=== PATIENT | male | born 1970 | race Caucasian/White ===

== ENCOUNTER 2022-06-14 06:04 | Inpatient (IN) ==
[2022-06-14] MEDS ORDERED: ceFAZolin 2,000 MG in Water for inj. (sterile) 20 ML IVP ONE (06:24)
[2022-06-14] MEDS ORDERED: *HR* FentaNYL (PF) 100 MCG/2 ML VIAL ONE ×2 (06:39→08:17)
[2022-06-14] MEDS ORDERED: *HR* Propofol 200 MG/20 ML VIAL IVP ONE (06:40)
[2022-06-14] MEDS ORDERED: *HR* Rocuronium Bromide 50 MG/5 ML VIAL ONE ×2 (06:40→08:46)
[2022-06-14] MEDS ORDERED: Ondansetron 4 MG/2 ML VIAL ONE (06:40)
[2022-06-14] MEDS ORDERED: Sugammadex Sodium 200 MG/2 ML VIAL IV ONE (06:40)
[2022-06-14] MEDS ORDERED: Lidocaine -MPF 2% 2 ML VIAL ONE (06:40)
[2022-06-14] MEDS: Ringers Solution, Lactated 1,000 ML IVC SCH ×2 (06:47→11:05)
[2022-06-14] MEDS ORDERED: *HR* Succinylcholine 200 MG/10 ML VIAL IVP ONE (06:54)
[2022-06-14] MEDS ORDERED: Acetaminophen IV 1,000 MG/100 ML BAG IVPB ONE (06:58)
[2022-06-14] MEDS ORDERED: CeFAZolin Syr 2,000MG/20 ML 2,000 MG/20 ML SYRINGE IVPB ONE (07:00)
[2022-06-14] MEDS ORDERED: Dexmedetomidine HCl 400 MCG/100 ML MLS IVC ONE (07:09)
[2022-06-14] MEDS ORDERED: *HR* HYDROmorphone PF 0.5 MG/0.5 ML SYRINGE IVP PRN (07:12)
[2022-06-14] MEDS ORDERED: *HR* Midazolam HCl 2 MG/2 ML VIAL ONE (07:14)
[2022-06-14] MEDS ORDERED: *HR* HYDROMORPHONE 2 MG/ML VIAL ONE (09:50)
[2022-06-14] MEDS ORDERED: Naloxone 0.4 MG/ML INJ IVP PRN (12:41)
[2022-06-14] MEDS ORDERED: Ondansetron 4 MG/2 ML VIAL IVP PRN (12:41)
[2022-06-14] MEDS: Ipratropium/Albuterol Neb 3 ML IH SCH ×4 (13:56→23:40)
[2022-06-14] MEDS ORDERED: Albuterol 2.5 MG/3 ML NEBULIZER IH SCH (15:00)
[2022-06-14] MEDS: *HR* OxyCODONE Oral Soln 5 MG/5 ML UD.LIQ PO PRN (16:21)
[2022-06-14] MEDS: Gabapentin 300 MG CAPSULE PO SCH ×2 (16:21→19:58)
[2022-06-14] MEDS: *HR* Heparin 5,000 UNIT/ML VIAL SQ SCH ×2 (16:22→19:58)
[2022-06-14] MEDS: 0.9 % Sodium Chloride 1,000 ML IVC SCH (16:23)
[2022-06-14] MEDS: Pantoprazole 40 MG VIAL IVP SCH (18:13)
[2022-06-14] MEDS: Sennosides/Docusate Sodium TABLET PO SCH (19:58)
[2022-06-14] MEDS ORDERED: CYCLOBENZAPRINE HCL 5 MG PO SCH (21:00)
[2022-06-15] MEDS: *HR* OxyCODONE Oral Soln 5 MG/5 ML UD.LIQ PO PRN ×4 (00:34→20:06)
[2022-06-15] MEDS: 0.9 % Sodium Chloride 1,000 ML IVC SCH ×3 (00:35→16:08)
[2022-06-15 02:23] LABS: Hematocrit 41.1 % (37.5-50.1); Hemoglobin 14.2 g/dL (12.9-16.9); Mean Corpuscular HGB Conc 34.5 g/dL (31.6-35.5); Mean Corpuscular Volume 83.9 fL (83.0-100.0); Platelet Count 277 K/mcL (140-400); Red Cell Distribution Width 12.7 % (11.5-14.5)
[2022-06-15 02:36] LABS: White Blood Count 11.9 K/mcL (4.3-11.1)
[2022-06-15 02:40] LABS: BUN/Creatinine Ratio 14 (6-26); Blood Urea Nitrogen 14 mg/dL (6-20); Calcium 8.7 mg/dL (8.6-10.3); Carbon Dioxide 23 mEq/L (23-29); Chloride 105 mEq/L (98-107); Glucose 97 mg/dL (70-105); Magnesium 1.6 mg/dL (1.6-2.6); Osmolality,Calculated 280 (280-300); Potassium 3.7 mEq/L (3.5-5.1); Sodium 135 mEq/L (136-145)
[2022-06-15] MEDS: Ipratropium/Albuterol Neb 3 ML IH SCH ×6 (04:23→23:09)
[2022-06-15] MEDS: Pantoprazole 40 MG VIAL IVP SCH ×2 (06:22→17:09)
[2022-06-15] MEDS: *HR* Heparin 5,000 UNIT/ML VIAL SQ SCH ×3 (06:23→21:14)
[2022-06-15] MEDS: Gabapentin 300 MG CAPSULE PO SCH ×3 (08:03→20:06)
[2022-06-15] MEDS: Sennosides/Docusate Sodium TABLET PO SCH ×2 (08:03→20:06)
[2022-06-15] MEDS: Ketorolac 30 MG/ML VIAL IVP SCH ×2 (17:10→23:27)
[2022-06-15] MEDS: Metoprolol XL (24 HR) Succ 25 MG TAB.ER.24H PO SCH (17:14)
[2022-06-16 01:59] LABS: Hematocrit 42.1 % (37.5-50.1); Hemoglobin 14.4 g/dL (12.9-16.9); Mean Corpuscular HGB Conc 34.2 g/dL (31.6-35.5); Mean Corpuscular Hemoglobin 29.3 pg (28.0-33.3); Mean Corpuscular Volume 85.6 fL (83.0-100.0); Mean Platelet Volume 9.8 fL (9.4-12.4); Platelet Count 272 K/mcL (140-400); Red Blood Count 4.92 M/mcL (4.19-5.50); Red Cell Distribution Width 13.1 % (11.5-14.5)
[2022-06-16 02:01] LABS: White Blood Count 4.4 K/mcL (4.3-11.1)
[2022-06-16 02:19] LABS: Calcium 8.4 mg/dL (8.6-10.3); Potassium 3.7 mEq/L (3.5-5.1)
[2022-06-16] MEDS: Ipratropium/Albuterol Neb 3 ML IH SCH ×6 (04:36→22:54)
[2022-06-16] MEDS: *HR* Heparin 5,000 UNIT/ML VIAL SQ SCH ×3 (05:58→23:04)
[2022-06-16] MEDS: Ketorolac 30 MG/ML VIAL IVP SCH (05:59)
[2022-06-16] MEDS: *HR* OxyCODONE Oral Soln 5 MG/5 ML UD.LIQ PO PRN ×4 (05:59→23:59)
[2022-06-16] MEDS: Pantoprazole 40 MG VIAL IVP SCH ×2 (05:59→17:06)
[2022-06-16] MEDS: 0.9 % Sodium Chloride 1,000 ML IVC SCH ×2 (06:50→19:26)
[2022-06-16] MEDS: Metoprolol XL (24 HR) Succ 25 MG TAB.ER.24H PO SCH (07:54)
[2022-06-16] MEDS: Gabapentin 300 MG CAPSULE PO SCH ×3 (07:54→19:20)
[2022-06-16] MEDS: Sennosides/Docusate Sodium TABLET PO SCH ×2 (07:54→19:20)
[2022-06-16] MEDS: Metoclopramide 10 MG/2 ML VIAL IVP SCH ×3 (10:58→23:04)
[2022-06-16 11:37] LABS: Bacteria,Urine Few per hpf (None-Few); Bilirubin,Urine Small (Negative); Blood,Urine Negative (Negative); Clarity,Urine Turbid (Clear); Color,Urine Orange (Yellow); Glucose,Urine (UA) Normal (Normal); Granular Casts,Urine Few per lpf (None Seen); Hyaline Casts,Urine Moderate per lpf (None Seen); Ketones,Urine Trace mg/dL (Negative); Leukocyte Esterase,Urine Negative (Negative); Mucus,Urine Few per lpf (None-Few); Nitrite,Urine Negative (Negative); PH,Urine 5.5 pH Units (5.0-8.0); Protein,Urine 70 mg/dL (Neg-Trace); RBC,Urine 0-3 per hpf (0-3); Specific Gravity,Urine > 1.030 (1.010-1.025); Squamous Epithelial Cell,Urine Few per hpf (None-Few)
[2022-06-17] MEDS: Ipratropium/Albuterol Neb 3 ML IH SCH ×2 (03:24→07:37)
[2022-06-17 05:24] LABS: BUN/Creatinine Ratio 19 (6-26); Blood Urea Nitrogen 19 mg/dL (6-20); Calcium 9.2 mg/dL (8.6-10.3); Carbon Dioxide 21 mEq/L (23-29); Chloride 100 mEq/L (98-107); Glucose 135 mg/dL (70-105); Osmolality,Calculated 278 (280-300); Potassium 4.1 mEq/L (3.5-5.1); Sodium 132 mEq/L (136-145)
[2022-06-17] MEDS: Pantoprazole 40 MG VIAL IVP SCH ×2 (05:52→17:20)
[2022-06-17] MEDS: *HR* Heparin 5,000 UNIT/ML VIAL SQ SCH ×3 (05:53→23:04)
[2022-06-17] MEDS: Metoclopramide 10 MG/2 ML VIAL IVP SCH ×4 (05:53→23:04)
[2022-06-17] MEDS ORDERED: 0.9 % Sodium Chloride 1,000 ML ONE (06:21)
[2022-06-17] MEDS ORDERED: 0.9 % Sodium Chloride 1,000 ML IVC ONE (06:22)
[2022-06-17] MEDS: *HR* OxyCODONE Oral Soln 5 MG/5 ML UD.LIQ PO PRN (06:24)
[2022-06-17] MEDS: Gabapentin 300 MG CAPSULE PO SCH (07:35)
[2022-06-17] MEDS: Sennosides/Docusate Sodium TABLET PO SCH ×2 (07:52→19:27)
[2022-06-17] MEDS: 0.9 % Sodium Chloride 1,000 ML IVC SCH ×2 (08:02→17:20)
[2022-06-17] MEDS ORDERED: Metoprolol XL (24 HR) Succ 50 MG TAB.ER.24H PO SCH (09:00)
[2022-06-17] MEDS ORDERED: *HR* OxyCODONE Oral Soln 5 MG/5 ML UD.LIQ PO PRN (10:01)
[2022-06-17] MEDS: *HR* Metoprolol 5 MG/5 ML VIAL IVP SCH ×3 (12:08→23:04)
[2022-06-17] MEDS: *HR* HYDROmorphone (PF) 1 MG/ML SYRINGE IVP PRN ×2 (15:03→23:17)
[2022-06-18] MEDS ORDERED: Albuterol 2.5 MG/3 ML NEBULIZER IH PRN
[2022-06-18] MEDS ORDERED: methylPREDNISolone 125 MG/2 ML VIAL IVP ONE (00:26)
[2022-06-18] MEDS: Cefepime HCl 2,000 MG in 0.9 % Sodium Chloride 10 ML IVP SCH ×3 (01:29→15:06)
[2022-06-18] MEDS: 0.9 % Sodium Chloride 1,000 ML IVC SCH ×3 (01:35→17:04)
[2022-06-18] MEDS ORDERED: Albuterol 2.5 MG/3 ML NEBULIZER ONE (02:25)
[2022-06-18] MEDS: Albuterol 2.5 MG/3 ML NEBULIZER IH SCH ×6 (02:28→23:58)
[2022-06-18 02:49] LABS: Hematocrit 39.7 % (37.5-50.1); Mean Corpuscular HGB Conc 32.7 g/dL (31.6-35.5); Mean Corpuscular Hemoglobin 28.5 pg (28.0-33.3); Mean Corpuscular Volume 87.1 fL (83.0-100.0); Mean Platelet Volume 9.9 fL (9.4-12.4); Platelet Count 332 K/mcL (140-400); Red Blood Count 4.56 M/mcL (4.19-5.50); Red Cell Distribution Width 13.3 % (11.5-14.5); White Blood Count 6.4 K/mcL (4.3-11.1)
[2022-06-18 03:09] LABS: Calcium 8.9 mg/dL (8.6-10.3); Magnesium 2.2 mg/dL (1.6-2.6); Potassium 4.8 mEq/L (3.5-5.1)
[2022-06-18] MEDS: *HR* Metoprolol 5 MG/5 ML VIAL IVP SCH ×3 (05:56→17:05)
[2022-06-18] MEDS: Pantoprazole 40 MG VIAL IVP SCH ×2 (05:56→17:05)
[2022-06-18] MEDS: Metoclopramide 10 MG/2 ML VIAL IVP SCH ×3 (05:56→17:05)
[2022-06-18] MEDS: *HR* Heparin 5,000 UNIT/ML VIAL SQ SCH ×3 (05:56→20:36)
[2022-06-18] MEDS: Sennosides/Docusate Sodium TABLET PO SCH ×2 (07:36→20:37)
[2022-06-18] MEDS ORDERED: methylPREDNISolone 125 MG/2 ML VIAL IVP SCH (08:00)
[2022-06-18] MEDS ORDERED: Saliva Stimulant 44.3ml BOTTLE PO PRN (09:24)
[2022-06-18] MEDS ORDERED: Bisacodyl 10 MG RECTAL SUPPOSITORY RC PRN (09:25)
[2022-06-18] MEDS ORDERED: D5% in Water 1,000 ML IVC PRN (12:57)
[2022-06-18] MEDS ORDERED: Dextrose Gel 15 GM/37.5 ML TUBE PO PRN ×2 (12:57)
[2022-06-18] MEDS ORDERED: *HR* Dextrose 50 % in Water (Syg) 50 ML SYRINGE IVP PRN (12:57)
[2022-06-18] MEDS: *HR* HYDROmorphone (PF) 1 MG/ML SYRINGE IVP PRN (13:24)
[2022-06-18] MEDS ORDERED: Lidocaine -MPF 1% 5 ML AMPUL INFILT ONE (14:43)
[2022-06-18] MEDS: methylPREDNISolone 125 MG/2 ML VIAL IVP SCH (15:07)
[2022-06-18] MEDS ORDERED: AMINO ACIDS IV SCH (17:00)
[2022-06-18] MEDS ORDERED: Clinimix E 5%-15% SOLUTION 2,000 ML with MVI, adult with vitamin K 10 ML IVC SCH (17:00)
[2022-06-18] MEDS ORDERED: DEXTROSE 15% IV SCH (17:00)
[2022-06-18] MEDS ORDERED: MVI IV SCH (17:00)
[2022-06-18] MEDS ORDERED: [UNRECOGNIZED DRUG - OTHER] IV SCH (17:00)
[2022-06-18] MEDS: Fat Emulsion 250 ML IVPB SCH (17:05)
[2022-06-18] MEDS: Insulin LISPRO 300 UNITS/3 ML VIAL SUBQ SCH ×2 (17:42→20:37)
[2022-06-18] MEDS ORDERED: Insulin LISPRO 300 UNITS/3 ML VIAL SUBQ SCH (21:00)
[2022-06-18] MEDS ORDERED: Morphine Sulfate 2 MG/ML SYRINGE IVP ONE (23:41)
[2022-06-19] MEDS: Cefepime HCl 2,000 MG in 0.9 % Sodium Chloride 10 ML IVP SCH ×2 (00:19→08:53)
[2022-06-19] MEDS: *HR* Metoprolol 5 MG/5 ML VIAL IVP SCH ×5 (00:19→23:26)
[2022-06-19] MEDS: methylPREDNISolone 125 MG/2 ML VIAL IVP SCH ×3 (00:19→17:39)
[2022-06-19] MEDS: Metoclopramide 10 MG/2 ML VIAL IVP SCH ×5 (00:20→23:27)
[2022-06-19] MEDS: Insulin LISPRO 300 UNITS/3 ML VIAL SUBQ SCH ×7 (00:21→23:29)
[2022-06-19] MEDS ORDERED: Morphine Sulfate 2 MG/ML SYRINGE IVP PRN (01:51)
[2022-06-19] MEDS: 0.9 % Sodium Chloride 1,000 ML IVC SCH (02:33)
[2022-06-19] MEDS: Albuterol 2.5 MG/3 ML NEBULIZER IH SCH ×6 (03:30→23:36)
[2022-06-19 05:07] LABS: ABG Base Excess 1 mEq/L (-2 to 3); ABG HCO3 25 mEq/L (21-27); ABG Oxygen Saturation 94 % (95-98); ABG PCO2 37 mmHg (35-45); ABG PH 7.44 pH Units (7.32-7.45); ABG PO2 69 mmHg (85-104); ABG TCO2 26 mEq/L (20-26)
[2022-06-19] MEDS ORDERED: Furosemide 40 MG in 0.9 % Sodium Chloride 50 ML IV ONE (05:10)
[2022-06-19] MEDS ORDERED: Furosemide 40 MG/4 ML VIAL IVP ONE (05:27)
[2022-06-19 05:37] LABS: Hematocrit 32.2 % (37.5-50.1); Hemoglobin 10.9 g/dL (12.9-16.9); Mean Corpuscular HGB Conc 33.9 g/dL (31.6-35.5); Mean Corpuscular Hemoglobin 29.1 pg (28.0-33.3); Mean Corpuscular Volume 85.9 fL (83.0-100.0); Platelet Count 243 K/mcL (140-400); Red Blood Count 3.75 M/mcL (4.19-5.50); Red Cell Distribution Width 13.6 % (11.5-14.5); White Blood Count 7.1 K/mcL (4.3-11.1)
[2022-06-19 06:05] LABS: BUN/Creatinine Ratio 31 (6-26); Blood Urea Nitrogen 27 mg/dL (6-20); Calcium 8.8 mg/dL (8.6-10.3); Carbon Dioxide 25 mEq/L (23-29); Chloride 109 mEq/L (98-107); Glucose 197 mg/dL (70-105); Magnesium 2.1 mg/dL (1.6-2.6); Osmolality,Calculated 303 (280-300); Phosphorous 1.5 mg/dL (2.7-4.5); Potassium 3.4 mEq/L (3.5-5.1); Sodium 141 mEq/L (136-145)
[2022-06-19] MEDS: *HR* Heparin 5,000 UNIT/ML VIAL SQ SCH ×3 (06:42→21:02)
[2022-06-19] MEDS: Pantoprazole 40 MG VIAL IVP SCH ×2 (06:42→17:42)
[2022-06-19] MEDS ORDERED: Potassium Phosphate 44 MEQ in 0.9 % Sodium Chloride 250 ML IVPB PRN (07:44)
[2022-06-19] MEDS ORDERED: 0.9 % Sodium Chloride 1,000 ML IVC SCH (08:22)
[2022-06-19] MEDS ORDERED: Fat Emulsions 20% 250 ML IVPB SCH (09:00)
[2022-06-19] MEDS: Sennosides/Docusate Sodium TABLET PO SCH ×2 (09:30→21:03)
[2022-06-19 09:51] LABS: Basophils # 0.1 K/mcL (0.0-0.2); Basophils % 0.6 %; Eosinophils % 0.1 %; Hematocrit 33.6 % (37.5-50.1); Hemoglobin 11.5 g/dL (12.9-16.9); Immature Granulocytes % 2.3 % (0-4); Lymphocytes # 0.3 K/mcL (0.6-4.6); Lymphocytes % 3.6 %; Mean Corpuscular HGB Conc 34.2 g/dL (31.6-35.5); Mean Corpuscular Hemoglobin 29.2 pg (28.0-33.3); Mean Corpuscular Volume 85.3 fL (83.0-100.0); Mean Platelet Volume 10.1 fL (9.4-12.4); Monocytes # 0.9 K/mcL (0.0-1.3); Monocytes % 11.5 %; Neutrophils # 6.6 K/mcL (1.6-8.9); Nucleated Red Blood Cells 0.3 /100 WBC (0); Platelet Count 267 K/mcL (140-400); Red Blood Count 3.94 M/mcL (4.19-5.50); Red Cell Distribution Width 13.5 % (11.5-14.5); Segmented Neutrophils % 81.9 %
[2022-06-19 10:19] LABS: BUN/Creatinine Ratio 30 (6-26); Blood Urea Nitrogen 28 mg/dL (6-20); Calcium 8.9 mg/dL (8.6-10.3); Carbon Dioxide 25 mEq/L (23-29); Chloride 108 mEq/L (98-107); Glucose 180 mg/dL (70-105); Osmolality,Calculated 304 (280-300); Potassium 4.3 mEq/L (3.5-5.1); Sodium 142 mEq/L (136-145)
[2022-06-19] MEDS: Budesonide/Formoterol 160/4.5 1 PUFF INH IH SCH ×2 (11:20→19:50)
[2022-06-19] MEDS: Fat Emulsion 250 ML IVPB SCH (16:30)
[2022-06-19] MEDS ORDERED: Clinimix E 5%-15% SOLUTION 2,000 ML with MVI, adult with vitamin K 10 ML IV SCH (17:00)
[2022-06-19] MEDS: Ampicillin/Sulbactam 3,000 MG in 0.9 % Sodium Chloride Mini Bag 100 ML IVPB SCH ×2 (17:43→23:27)
[2022-06-20] MEDS: Albuterol 2.5 MG/3 ML NEBULIZER IH SCH ×2 (04:12→07:25)
[2022-06-20 04:16] LABS: Hematocrit 32.9 % (37.5-50.1); Hemoglobin 11.1 g/dL (12.9-16.9); Mean Corpuscular HGB Conc 33.7 g/dL (31.6-35.5); Mean Corpuscular Hemoglobin 29.1 pg (28.0-33.3); Mean Corpuscular Volume 86.1 fL (83.0-100.0); Mean Platelet Volume 10.2 fL (9.4-12.4); Platelet Count 281 K/mcL (140-400); Red Blood Count 3.82 M/mcL (4.19-5.50); Red Cell Distribution Width 13.9 % (11.5-14.5)
[2022-06-20 04:45] LABS: BUN/Creatinine Ratio 39 (6-26); Blood Urea Nitrogen 35 mg/dL (6-20); Carbon Dioxide 24 mEq/L (23-29); Chloride 110 mEq/L (98-107); Glucose 151 mg/dL (70-105); Magnesium 2.2 mg/dL (1.6-2.6); Osmolality,Calculated 309 (280-300); Phosphorous 2.7 mg/dL (2.7-4.5); Potassium 3.6 mEq/L (3.5-5.1); Sodium 144 mEq/L (136-145); Triglycerides 261 mg/dL (< 150)
[2022-06-20] MEDS: *HR* Metoprolol 5 MG/5 ML VIAL IVP SCH ×4 (06:01→23:09)
[2022-06-20] MEDS: Metoclopramide 10 MG/2 ML VIAL IVP SCH ×3 (06:21→23:26)
[2022-06-20] MEDS: *HR* Heparin 5,000 UNIT/ML VIAL SQ SCH ×3 (06:21→23:26)
[2022-06-20] MEDS: Pantoprazole 40 MG VIAL IVP SCH ×2 (06:22→17:45)
[2022-06-20] MEDS: Ampicillin/Sulbactam 3,000 MG in 0.9 % Sodium Chloride Mini Bag 100 ML IVPB SCH ×4 (06:25→23:27)
[2022-06-20] MEDS: methylPREDNISolone 125 MG/2 ML VIAL IVP SCH (06:25)
[2022-06-20] MEDS: Insulin LISPRO 300 UNITS/3 ML VIAL SUBQ SCH ×6 (06:41→23:26)
[2022-06-20] MEDS: Budesonide/Formoterol 160/4.5 1 PUFF INH IH SCH ×2 (07:26→21:56)
[2022-06-20] MEDS: Sennosides/Docusate Sodium TABLET PO SCH ×2 (07:34→20:03)
[2022-06-20] MEDS ORDERED: Metoclopramide 10 MG/2 ML VIAL IVP SCH (08:30)
[2022-06-20] MEDS ORDERED: Saliva Stimulant 44.3ml BOTTLE PO PRN (14:01)
[2022-06-20] MEDS ORDERED: Clinimix E 5%-15% SOLUTION 2,000 ML with MVI, adult with vitamin K 10 ML IV SCH ×2 (14:01→17:00)
[2022-06-20] MEDS ORDERED: Naloxone 0.4 MG/ML INJ IVP PRN (14:01)
[2022-06-20] MEDS ORDERED: Ondansetron 4 MG/2 ML VIAL IVP PRN (14:01)
[2022-06-20] MEDS ORDERED: *HR* HYDROmorphone (PF) 1 MG/ML SYRINGE IVP PRN (14:01)
[2022-06-20] MEDS ORDERED: Dextrose Gel 15 GM/37.5 ML TUBE PO PRN ×2 (14:01)
[2022-06-20] MEDS ORDERED: D5% in Water 1,000 ML IVC PRN (14:01)
[2022-06-20] MEDS ORDERED: *HR* Dextrose 50 % in Water (Syg) 50 ML SYRINGE IVP PRN (14:01)
[2022-06-20] MEDS ORDERED: *HR* OxyCODONE Oral Soln 5 MG/5 ML UD.LIQ PO PRN (14:01)
[2022-06-20] MEDS ORDERED: Fat Emulsion 250 ML IVPB SCH (17:00)
[2022-06-20] MEDS ORDERED: MethylPREDNISolone 40 MG/ML VIAL IVP SCH (18:00)
[2022-06-21] MEDS: *HR* Heparin 5,000 UNIT/ML VIAL SQ SCH ×2 (07:25→14:48)
[2022-06-21] MEDS: Insulin LISPRO 300 UNITS/3 ML VIAL SUBQ SCH ×2 (07:25→08:14)
[2022-06-21] MEDS: *HR* Metoprolol 5 MG/5 ML VIAL IVP SCH ×2 (07:25→12:21)
[2022-06-21] MEDS: Ampicillin/Sulbactam 3,000 MG in 0.9 % Sodium Chloride Mini Bag 100 ML IVPB SCH ×2 (07:25→12:20)
[2022-06-21] MEDS: Pantoprazole 40 MG VIAL IVP SCH (07:25)
[2022-06-21] MEDS: Budesonide/Formoterol 160/4.5 1 PUFF INH IH SCH (07:45)
[2022-06-21] MEDS: Metoclopramide 10 MG/2 ML VIAL IVP SCH (08:13)
[2022-06-21] MEDS: Sennosides/Docusate Sodium TABLET PO SCH (08:14)
[2022-06-21 08:29] LABS: Hematocrit 31.9 % (37.5-50.1); Mean Corpuscular HGB Conc 34.2 g/dL (31.6-35.5); Mean Corpuscular Hemoglobin 29.5 pg (28.0-33.3); Mean Platelet Volume 10.1 fL (9.4-12.4); Platelet Count 254 K/mcL (140-400); Red Blood Count 3.69 M/mcL (4.19-5.50); White Blood Count 10.4 K/mcL (4.3-11.1)
[2022-06-21 08:43] LABS: Hemoglobin 10.9 g/dL (12.9-16.9); Mean Corpuscular Volume 86.4 fL (83.0-100.0)
[2022-06-21 08:50] LABS: BUN/Creatinine Ratio 43 (6-26); Blood Urea Nitrogen 38 mg/dL (6-20); Calcium 8.3 mg/dL (8.6-10.3); Carbon Dioxide 24 mEq/L (23-29); Chloride 107 mEq/L (98-107); Glucose 146 mg/dL (70-105); Magnesium 2.2 mg/dL (1.6-2.6); Osmolality,Calculated 298 (280-300); Potassium 3.8 mEq/L (3.5-5.1); Sodium 138 mEq/L (136-145)
[2022-06-21 11:19] VITALS: BP 149/90; PULSE 62; TEMP 98; O2SAT 98
== END 2022-06-21 15:08 | disposition home or self-care (01) | DRG 326 ==
LOC: SAMDAY 06:04 → 2NNU 12:51 → ICNU 06-19 06:03 → 2NNU 06-20 13:58
PROVIDERS: ADMIT Thoracic Surgery (Cardiothoracic Vascular Surgery); ATTEND Thoracic Surgery (Cardiothoracic Vascular Surgery)